=== PATIENT | female | born 1935 | race Caucasian/White ===

== ENCOUNTER → 2017-04-21 | Outpatient (CLI) | payer MEDICARE, OTHER | END | disposition home or self-care (01) | LOC: PCVCCLINIC 11:12 | PROVIDERS: ATTEND Internal Medicine | DX: I48.0 Paroxysmal atrial fibrillation (principal); I45.10 Unspecified right bundle-branch block; I95.9 Hypotension, unspecified; Z99.2 Dependence on renal dialysis; Z88.1 Allergy status to other antibiotic agents | CPT/HCPCS: 93005; G0463 ==

== ENCOUNTER → 2018-02-06 | Outpatient (CLI) | payer MEDICARE, OTHER | END | disposition home or self-care (01) | LOC: PCVCCLINIC 11:17 | DX: I48.0 Paroxysmal atrial fibrillation (principal); R00.2 Palpitations; E78.5 Hyperlipidemia, unspecified; Z88.8 Allergy status to other drugs, medicaments and biological substances; Z79.899 Other long term (current) drug therapy | CPT/HCPCS: 80061; 93005; G0463 ==

== ENCOUNTER → 2019-03-13 | Outpatient (CLI) | payer MEDICARE, OTHER | END | disposition home or self-care (01) | LOC: PCVCCLINIC 13:00 | PROVIDERS: ATTEND Internal Medicine | DX: Z01.810 Encounter for preprocedural cardiovascular examination (principal); I48.0 Paroxysmal atrial fibrillation; R53.83 Other fatigue; E78.5 Hyperlipidemia, unspecified; R60.0 Localized edema | CPT/HCPCS: 36415; 80061; 93005; G0463 ==

== ENCOUNTER → 2019-04-04 | Outpatient (CLI) | payer MEDICARE, OTHER ==
[~2019-04-04] MED LIST: REGADENOSON 0.4 MG/5 ML DISP.SYRIN. IV ONE
--- NOTE | 2019-04-04 10:13 | PCVCIMAG ---
APPROVED REPORT Study performed: 04/04/2019 08:52:42 EXAM: Comprehensive 2D, Doppler, and color-flow Echocardiogram Patient Location: Echo lab Status: routine BSA: 1.46 HR: 83 bpmBP: 128/80 mmHg Rhythm: NSR Other Information Study Quality: Good Risk Factors: Cardiac Risk Factors: Hyperlipidemia Indications Atrial Fibrillation Pre-op clearance 2D Dimensions IVSd: 13.18 (7-11mm)LVOT Diam: 17.14 (18-24mm) LVDd: 25.81 mm PWd: 10.97 (7-11mm)Ascending Ao: 36.76 (22-36mm) LVDs: 21.79 (25-40mm) Left Atrium: 22.87 (27-40mm) Aortic Root: 21.15 mm LV Single Plane 4CH: 64.62 % LV Single Plane 2CH: 77.61 % Volumes Left Atrial Volume (Systole) Single Plane 4CH: 14.48 mLSingle Plane 2CH: 22.21 mL LA ESV Index: 13.00 mL/m2 Mitral Valve E/A Ratio: 0.9 MV Decel. Time: 140.00 ms MV E Max Eric.: 0.73 m/s MV A Eric.: 0.82 m/s IVRT: 100.35 ms TDI E/Lateral E': 8.11E/Medial E': 12.17 Medial E' Eric.: 0.06 m/s Lateral E' Eric.: 0.09 m/s Pulmonary Valve PV Peak Gr.: 3.61 mmHg Pulmonary Vein P Vein S: 0.62 m/sP Vein A: 0.35 m/s P Vein D: 0.47 m/sP Vein A Dur.: 121.1 msec P Vein S/D Ratio: 1.32 Tricuspid Valve TR Peak Eric.: 2.51 m/s TR Peak Gr.: 25.25 mmHg Left Ventricle The left ventricle is normal size. There is normal LV segmental wall motion. There is normal left ventricular wall thickness. Left ventricular systolic function is normal. The left ventricular ejection fraction is within the normal range. LVEF is 55-60%. The left ventricular diastolic function is normal. Right Ventricle The right ventricle is normal size. The right ventricular systolic function is normal. Atria The left atrium size is normal. The right atrium size is normal. Aortic Valve The aortic valve is normal in structure. No aortic regurgitation is present. There is no aortic valvular stenosis. Mitral Valve The mitral valve is normal in structure. Trace mitral regurgitation. No evidence of mitral valve stenosis. Tricuspid Valve The tricuspid valve is normal in structure. Trace to mild tricuspid regurgitation. Pulmonary artery pressure is 33mmHg. Pulmonic Valve The pulmonary valve is normal in structure. There is no pulmonic valvular regurgitation. Great Vessels The aortic root is normal in size. IVC is normal in size and collapses >50% with inspiration. Pericardium There is no pericardial effusion. <Conclusion> The left ventricle is normal size. LVEF is 55-60%. The aortic valve is normal in structure. The mitral valve is normal in structure. Trace mitral regurgitation. The tricuspid valve is normal in structure. Trace to mild tricuspid regurgitation. Pulmonary artery pressure is 33mmHg. The pulmonary valve is normal in structure. There is no pericardial effusion.
--- NOTE | 2019-04-05 11:59 | PCVCIMAG ---
APPROVED REPORT Imaging Protocol: Rest Tc-99m/Stress Tc-99m 1 day Study performed: 04/04/2019 09:57:33 Indication: Pre-Operative CV evaluation, Fatigue, Paroxysmal Atrial Fibrillation Patient Location: Out-Patient Stress Nurse: Tamara Hill RN, Claribel Ching RN [place] Tech:PANCHITO EckertMT Ht: 5 ft 4 in Wt: 98 lbs BSA: 1.45 m2 HR: 72 bpm BP: 179/802 mmHg BMI: 16.81 Rhythm: Sinus Rhythm Medical History Medical History: Hyperlipidemia Medications: Eliquis, Cardizem, Lisinopril, Reglan, Protonix, Tamsulosin Allergies: Many - none relevant to this exam. Cardiac Risk Factors: Age Pretest Chest Pain Characteristics: No chest pain Exercise History: Sedentary Physical Disabilities: Back Resting Data Rest SPECT myocardial perfusion imaging was performed in supine position 45 minutes following the intravenous injection of 9.4 mCi of Tc-99m Sestamibi. Time of rest injection: 929 Date: 04/04/2019 Administration Route: IV Administration Site: Left Arm Pharmacologic Stress Pharmacologic stress test was performed by injecting Regadenoson 0.4 mg IV push over 10-15 seconds immediately followed by the intravenous injection of 31.9 mCi of Tc-99m Sestamibi. Time of stress injection: 1114 Date: 04/04/2019 Administration Route: IV Administration Site: Left Arm Gated Stress SPECT was performed 45 minutes after stress injection. The images were gated to evaluate regional wall motion and calculate left ventricular ejection fraction. Stress Test Details Stress Test: Pharmacologic stress testing performed using 0.4 mg of regadenoson per 5 mL given IV over 10 seconds. Reason for pharmacologic stress test: physical limitation, unsteady gait. HRMax Heart Rate (APMHR): 134 bpm Resting HR: 72 bpmTarget HR (85% APMHR): 113 bpm Max HR Achieved: 100 bpm % of APMHR: 74 Recovery HR: 93 bpm BP Resting BP: 179/82 mmHg Max BP: 131/61 mmHg Recovery BP: 152/65 mmHg ECG Resting ECG: Sinus Rhythm Stress ECG: Sinus Rhythm Arrhythmia: PVC's Recovery ECG: Sinus Rhythm Clinical Reason for Termination: Completed protocol Stress Symptoms: Abdominal discomfort, Chest tightness Symptoms resolved with caffeine. Stress ECG Conclusion 1. Adequate response to intravenous Lexiscan 2. Inadequate heart rate for ECG diagnosis Perfusion There is a small area of mildly reduced uptake in the apical segment of the anterior wall which is seen on the stress images as well as the resting images. This area thickens and moves normally and is most consistent with attenuation artifact. Wall Motion Normal left ventricular wall motion. Nuclear Conclusion ECG Findings: non-diagnostic Clinical Findings: negative for ischemia Nuclear Findings: negative for ischemia Exercise Capacity: not assessed Left Ventricular Function: normal 1. Low risk study 2. Post exercise left ventricular ejection fraction 83% with normal contractility <Conclusion> 1. Adequate response to intravenous Lexiscan 2. Inadequate heart rate for ECG diagnosis
== END | disposition home or self-care (01) ==
LOC: PCVCIMAG 08:44
PROVIDERS: ATTEND Internal Medicine
DX: Z01.818 Encounter for other preprocedural examination (principal); I07.1 Rheumatic tricuspid insufficiency; I48.0 Paroxysmal atrial fibrillation; E78.5 Hyperlipidemia, unspecified; R53.83 Other fatigue; Z88.8 Allergy status to other drugs, medicaments and biological substances
CPT/HCPCS: 78452; 93017; 93306; A9500; J2785